=== PATIENT | female | born 1950 | race Caucasian/White ===

== ENCOUNTER → 2023-09-01 06:29 | Day surgery (SDC) | payer MEDICARE, BC, SELFPAY ==
[2023-08-18 09:01] LABS: Hematocrit 39.9 % (37.0-47.0); Hemoglobin 12.7 g/dL (12.0-16.0); Mean Corp Hgb Conc. 31.8 g/dL (33.0-37.0); Mean Corpuscular Hgb 28.8 pg (27.0-31.0); Mean Corpuscular Volume 90.5 fL (81.0-99.0); Mean Platelet Volume 9.6 fL (7.4-10.4); Platelet Count 223 10^3/uL (130-400); Red Blood Cell Count 4.41 10^6/uL (4.20-5.40); Red Cell Dist. Width 13.6 % (11.5-14.5); White Blood Cell Count 6.3 10^3/uL (4.8-10.8)
[2023-08-18 10:01] LABS: Blood Urea Nitrogen 15 mg/dl (7-17); Calcium 10.1 mg/dl (8.4-10.2); Carbon Dioxide 26 mmol/L (22-30); Chloride 104 mmol/L (98-107); Glucose 127 mg/dl (70-99); Potassium 4.7 mmol/L (3.5-5.1); Sodium 140 mmol/L (135-145); eGFR > 60.00
[2023-08-18 12:01] VITALS: BMI 33.3
[2023-09-01] VITALS (10 sets, daily range): BP systolic 0–163; BP diastolic 60–82; BMI 33.3
[2023-09-01 09:21] LABS: Glucose - Point of Care 138 mg/dl (70-99)
[2023-09-01] MEDS: Pyridium 200 MG PO (09:46)
[2023-09-01] MEDS: NEURONTIN 300 MG PO (09:46)
[2023-09-01] MEDS: TYLENOL 1000 MG PO (09:47)
[2023-09-01 15:15] LABS: Glucose - Point of Care 168 mg/dl (70-99)
[2023-09-01 17:12] LABS: Glucose - Point of Care 195 mg/dl (70-99)
[2023-09-01] MEDS: TYLENOL 650 MG PO (18:19)
[2023-09-01 19:45] LABS: Glucose - Point of Care 193 mg/dl (70-99)
--- NOTE | 2023-09-01 19:52 | PTCARENOTE ---
Pt educated on how mcgill works, how to care of mcgill and given written instructions as well. Pt and pt's confirmed understanding and denied questions at completion of teaching. Pt and understand to call Dr. Zafar with any
bladder/urinary concerns or changes. Pt following up tomorrow with Dr. Haynes. Pt and educated on how to care for SONIA drains, given bag for showering and safety pins for securing SONIA drains. Pt and confirmed understanding of this care.
Given print out as well and will track drainage. <5ml in each drain, of water bloody drainage.
== END | disposition home or self-care (01) ==
LOC: SDS 06:29
PROVIDERS: ATTENDING PHYSICIAN Otolaryngology; FAMILY PHYSICIAN Student in an Organized Health Care Education/Training Program; OTHER PHYSICIAN Internal Medicine Cardiovascular Disease; REFERRING PHYSICIAN Obstetrics & Gynecology
DX: N99.3 Prolapse of vaginal vault after hysterectomy (principal); N39.3 Stress incontinence (female) (male); N95.2 Postmenopausal atrophic vaginitis; Z41.1 Encounter for cosmetic surgery
CPT/HCPCS: 15830; 15847; 57120; 57288; 57250; 36415; 80048; 82962; 85027; 86850; 86900; 86901; C1729; C1771

== ENCOUNTER → 2023-11-18 15:07 | Outpatient (REF) | payer MEDICARE, BC, SELFPAY | LOC: HWRAD 15:07 | PROVIDERS: ATTENDING PHYSICIAN Surgery; FAMILY PHYSICIAN Student in an Organized Health Care Education/Training Program | DX: K43.2 Incisional hernia without obstruction or gangrene (principal) | CPT/HCPCS: 74177; Q9967 ==

== ENCOUNTER → 2023-12-16 15:27 | Outpatient (REF) | payer MEDICARE, BC, SELFPAY | LOC: HWRAD 15:27 | PROVIDERS: ATTENDING PHYSICIAN Student in an Organized Health Care Education/Training Program | DX: R19.4 Change in bowel habit (principal); R15.2 Fecal urgency | CPT/HCPCS: 74018 ==

== ENCOUNTER → 2023-12-22 12:20 | Outpatient (REF) | payer MEDICARE, BC, SELFPAY ==
[2023-12-22 12:52] VITALS: BP 133/70; BP_SYST 69
[2023-12-22 13:58] VITALS: BP 124/71; BP_SYST 60
== END ==
LOC: RADI 12:20
PROVIDERS: ATTENDING PHYSICIAN Otolaryngology
DX: L76.34 Postprocedural seroma of skin and subcutaneous tissue following other procedure (principal); Y83.8 Other surgical procedures as the cause of abnormal reaction of the patient, or of later complication, without mention of misadventure at the time of the procedure
CPT/HCPCS: 10030; C1729; C1769

== ENCOUNTER → 2023-12-24 09:43 | Outpatient (REF) | payer MEDICARE, BC, SELFPAY | LOC: HWWDC 09:43 | PROVIDERS: ATTENDING PHYSICIAN Student in an Organized Health Care Education/Training Program | DX: Z12.31 Encounter for screening mammogram for malignant neoplasm of breast (principal) | CPT/HCPCS: 77063; 77067 ==

== ENCOUNTER → 2023-12-31 10:16 | Outpatient (REF) | payer MEDICARE, BC, SELFPAY | LOC: RAD 10:16 | PROVIDERS: ATTENDING PHYSICIAN Otolaryngology; FAMILY PHYSICIAN Student in an Organized Health Care Education/Training Program | DX: K91.872 Postprocedural seroma of a digestive system organ or structure following a digestive system procedure (principal) | CPT/HCPCS: 76705 ==

== ENCOUNTER → 2024-06-04 09:17 | Outpatient (REF) | payer MEDICARE, BC, SELFPAY | LOC: HWRAD 09:17 | PROVIDERS: ATTENDING PHYSICIAN Nurse Practitioner; FAMILY PHYSICIAN Student in an Organized Health Care Education/Training Program | DX: K74.60 Unspecified cirrhosis of liver (principal) | CPT/HCPCS: 76700 ==

== ENCOUNTER → 2024-08-12 10:39 | Outpatient (REF) | payer MEDICARE, BC, SELFPAY | LOC: PAVMRI 10:39 | PROVIDERS: ATTENDING PHYSICIAN Nurse Practitioner | DX: R93.2 Abnormal findings on diagnostic imaging of liver and biliary tract (principal) | CPT/HCPCS: 74183; A9575 ==